=== PATIENT | female | born 1995 ===

== ENCOUNTER 2017-02-28 17:29 | Emergency (ER) | payer SELFPAY ==
[2017-02-28 19:05] LABS: Basophils % (Auto) 0.8 % (0.0-1.8); Eosinophils % (Auto) 1.6 % (0.0-4.3); Hematocrit 40.5 % (30.3-42.9); Hemoglobin 13.5 gm/dl (10.1-14.3); Mean Corpuscular HGB Conc 33 % (30-34); Mean Corpuscular Hemoglobin 32 pg (28-32); Mean Corpuscular Volume 96 fl (79-97); Platelet Count 216 K/mm3 (140-440); Red Blood Count 4.24 M/mm3 (3.65-5.03); White Blood Count 9.5 K/mm3 (4.5-11.0)
[2017-02-28 19:20] LABS: Anion Gap 16 mmol/L; BUN/Creatinine Ratio 12; Blood Urea Nitrogen 7 mg/dL (7-17); Calcium 9.5 mg/dL (8.4-10.2); Carbon Dioxide 22 mmol/L (22-30); Chloride 98.4 mmol/L (98-107); Glucose 100 mg/dL (65-100); Potassium 4.7 mmol/L (3.6-5.0); Sodium 132 mmol/L (137-145)
[2017-02-28 20:17] LABS: Bilirubin,Urine NEG (Negative); Blood,Urine NEG (Negative); Ketones,Urine NEG (Negative); Leukocyte Esterase,Urine SM (Negative); Mucus,Urine FEW /HPF; Nitrite,Urine NEG (Negative); Protein,Urine <15 mg/dL mg/dL (Negative); Urobilinogen,Urine < 2.0 mg/dL (<2.0)
[2017-02-28 22:50] VITALS: BP 123/46
--- NOTE | 2017-02-28 23:01 | Ultrasound Report ---
FINAL REPORT PROCEDURE: US OB TRANSVAGINAL TECHNIQUE: Real-time transabdominal and transvaginal sonography of the uterus, placenta, amniotic fluid, adnexa, and fetus was performed with image documentation. Measurements were obtained to determine age/size. M-mode Doppler was used to document heartbeat. CPT 33253 and 37940 HISTORY: and pain COMPARISON: No prior studies are available for comparison. FINDINGS: ADDITIONAL GESTATION: None. Single live intrauterine is seen with crown-rump length of 4.1 cm. This corresponds to 11 weeks 0 days gestational age. Estimated date of delivery is September 19, 2017. heart rate is 167 beats per minute. Yolk sac is seen. No free pelvic fluid is seen. Right ovary measures 3.3 x 2.8 x 3.2 cm. Left ovary measures 2.4 x 1.8 x 1.7 cm. Normal Doppler flow seen in the ovaries. IMPRESSION: 1. Single live intrauterine gestation at approximately 11 weeks 0 days 2. EDC by US September 19, 2017 3. Complete anatomic survey at 18-20 weeks suggested.
--- NOTE | 2017-02-28 23:02 | Ultrasound Report ---
FINAL REPORT PROCEDURE: US OB \T\lt; = 14 WEEKS FETUS TECHNIQUE: Real-time transabdominal and transvaginal sonography of the uterus, placenta, amniotic fluid, adnexa, and fetus was performed with image documentation. Measurements were obtained to determine age/size. M-mode Doppler was used to document heartbeat. CPT 81743 and 13685 HISTORY: and pain COMPARISON: No prior studies are available for comparison. FINDINGS: ADDITIONAL GESTATION: None. Single live intrauterine is seen with crown-rump length of 4.1 cm. This corresponds to 11 weeks 0 days gestational age. Estimated date of delivery is September 19, 2017. heart rate is 167 beats per minute. Yolk sac is seen. No free pelvic fluid is seen. Right ovary measures 3.3 x 2.8 x 3.2 cm. Left ovary measures 2.4 x 1.8 x 1.7 cm. Normal Doppler flow seen in the ovaries. IMPRESSION: 1. Single live intrauterine gestation at approximately 11 weeks 0 days 2. EDC by US September 19, 2017 3. Complete anatomic survey at 18-20 weeks suggested.
--- NOTE | 2017-02-28 23:16 | Emergency Department Report ---
HPI - General Chief Complaint: Abdominal Pain Time Seen by Provider: 02/28/17 21:43 - HPI HPI: 21-year-old female presents today complaining of nausea and abdominal cramping tends one month. Denies any abdominal pain. Patient's last menstrual period was 12/23/2016. Denies any vaginal bleeding or discharge. Denies using home test. Patient's has history of one other with a portion, one year ago. Denies chest pain, shortness of breath, abdominal pain, fever, chills, urinary symptoms, flank or back pain. ED Past Medical Hx - Past Medical History Previous Medical History?: Yes Hx Headaches / Migraines: Yes - Surgical History Past Surgical History?: Yes Additional Surgical History: - Social History Smoking Status: Current Some Day Smoker Substance Use Type: Marijuana - Medications Home Medications: Home Medications Medication Instructions Recorded Confirmed Last Taken Type Doxylamine Succinate/Vit B6 1 each PO QHS #30 tablet. 02/28/17 Unknown Rx [Unique Zambrano 10-10 mg Tablet] ED Review of Systems ROS: Stated complaint: ABDOMINAL PAIN, NAUSEA Other details as noted in HPI Constitutional: denies: chills, fever, malaise Eyes: denies: eye pain ENT: denies: ear pain, throat pain, congestion Respiratory: denies: cough, shortness of breath, wheezing Cardiovascular: denies: chest pain, palpitations Endocrine: no symptoms reported Gastrointestinal: nausea, vomiting, other (abdominal cramping). denies: abdominal pain, diarrhea Genitourinary: denies: urgency, dysuria, frequency, hematuria, discharge Musculoskeletal: denies: back pain Skin: denies: rash, lesions Neurological: denies: headache, weakness, numbness, paresthesias Physical Exam - Physical Exam Vital Signs: Vital Signs 02/28/17 02/28/17 18:24 22:47 Temperature 98.1 F 98.6 F Pulse Rate 80 88 Respiratory 18 14 Rate Blood Pressure 99/66 Blood Pressure 123/46 [Right] O2 Sat by Pulse 99 Oximetry Physical Exam: GENERAL: The patient is well-developed and well-nourished. Patient is in NAD. HEAD: Normocephalic. Atraumatic. EYES: Extraocular motions are intact, PERRL. EARS: External auditory canals and tympanic membranes clear; hearing grossly intact. NOSE: Normal nasal mucosa with no nasal discharge. THROAT: No erythema, swelling or exudates. Teeth and gingiva in good general condition. NECK: Supple, nontender, without lymphadenopathy. No meningitic signs are noted. CHEST/LUNGS: Clear to auscultation throughout. HEART/CARDIOVASCULAR: Regular rate and rhythm. No murmurs, rubs or gallops. ABDOMEN: Abdomen is soft, nontender. Bowel sounds normoactive. No guarding or rebound tenderness. No CVA tenderness to palpation. EXTREMITIES: No cyanosis, clubbing or edema. Peripheral pulses intact. Capillary refill less than 2 seconds. NEURO: Alert and oriented x 3. Normal gait. ED Course Vital Signs 02/28/17 02/28/17 18:24 22:47 Temperature 98.1 F 98.6 F Pulse Rate 80 88 Respiratory 18 14 Rate Blood Pressure 99/66 Blood Pressure 123/46 [Right] O2 Sat by Pulse 99 Oximetry ED Medical Decision Making - Lab Data Result diagrams: 02/28/17 17:05 02/28/17 18:45 Vital Signs 02/28/17 02/28/17 18:24 22:47 Temperature 98.1 F 98.6 F Pulse Rate 80 88 Respiratory 18 14 Rate Blood Pressure 99/66 Blood Pressure 123/46 [Right] O2 Sat by Pulse 99 Oximetry Lab Results 02/28/17 02/28/17 02/28/17 Range/Units 17:05 18:45 18:45 WBC 9.5 (4.5-11.0) K/mm3 RBC 4.24 (3.65-5.03) M/mm3 Hgb 13.5 (10.1-14.3) gm/dl Hct 40.5 (30.3-42.9) % MCV 96 (79-97) fl MCH 32 (28-32) pg MCHC 33 (30-34) % RDW 13.0 L (13.2-15.2) % Plt Count 216 (140-440) K/mm3 Lymph % (Auto) 14.2 (13.4-35.0) % [place] % (Auto) 5.9 (0.0-7.3) % Eos % (Auto) 1.6 (0.0-4.3) % Baso % (Auto) 0.8 (0.0-1.8) % Lymph # 1.4 (1.2-5.4) K/mm3 [place] # 0.6 (0.0-0.8) K/mm3 Eos # 0.1 (0.0-0.4) K/mm3 Baso # 0.1 (0.0-0.1) K/mm3 Seg Neutrophils % 77.5 H (40.0-70.0) % Seg Neutrophils # 7.4 (1.8-7.7) K/mm3 Sodium 132 L (137-145) mmol/L Potassium 4.7 (3.6-5.0) mmol/L Chloride 98.4 (98-107) mmol/L Carbon Dioxide 22 (22-30) mmol/L Anion Gap 16 mmol/L BUN 7 (7-17) mg/dL Creatinine 0.6 L (0.7-1.2) mg/dL Estimated GFR > 60 ml/min BUN/Creatinine Ratio 12 % Glucose 100 (65-100) mg/dL Calcium 9.5 (8.4-10.2) mg/dL HCG, Quant 29604 H (0-4) mIU/mL Urine Color (Yellow) Urine Turbidity (Clear) Urine pH (5.0-7.0) Ur Specific [place] (1.003-1.030) Urine Protein (Negative) mg/dL Urine Glucose (UA) (Negative) mg/dL Urine Ketones (Negative) mg/dL Urine Blood (Negative) Urine Nitrite (Negative) Urine Bilirubin (Negative) Urine Urobilinogen (<2.0) mg/dL Ur Leukocyte Esterase (Negative) Urine WBC (Auto) (0.0-6.0) /HPF Urine RBC (Auto) (0.0-6.0) /HPF U Epithel Cells (Auto) (0-13.0) /HPF Urine Mucus /HPF 02/28/17 Range/Units 19:30 WBC (4.5-11.0) K/mm3 RBC (3.65-5.03) M/mm3 Hgb (10.1-14.3) gm/dl Hct (30.3-42.9) % MCV (79-97) fl MCH (28-32) pg MCHC (30-34) % RDW (13.2-15.2) % Plt Count (140-440) K/mm3 Lymph % (Auto) (13.4-35.0) % [place] % (Auto) (0.0-7.3) % Eos % (Auto) (0.0-4.3) % Baso % (Auto) (0.0-1.8) % Lymph # (1.2-5.4) K/mm3 [place] # (0.0-0.8) K/mm3 Eos # (0.0-0.4) K/mm3 Baso # (0.0-0.1) K/mm3 Seg Neutrophils % (40.0-70.0) % Seg Neutrophils # (1.8-7.7) K/mm3 Sodium (137-145) mmol/L Potassium (3.6-5.0) mmol/L Chloride (98-107) mmol/L Carbon Dioxide (22-30) mmol/L Anion Gap mmol/L BUN (7-17) mg/dL Creatinine (0.7-1.2) mg/dL Estimated GFR ml/min BUN/Creatinine Ratio % Glucose (65-100) mg/dL Calcium (8.4-10.2) mg/dL HCG, Quant (0-4) mIU/mL Urine Color Yellow (Yellow) Urine Turbidity Clear (Clear) Urine pH 6.0 (5.0-7.0) Ur Specific [place] 1.015 (1.003-1.030) Urine Protein <15 mg/dl (Negative) mg/dL Urine Glucose (UA) Neg (Negative) mg/dL Urine Ketones Neg (Negative) mg/dL Urine Blood Neg (Negative) Urine Nitrite Neg (Negative) Urine Bilirubin Neg (Negative) Urine Urobilinogen < 2.0 (<2.0) mg/dL Ur Leukocyte Esterase Sm (Negative) Urine WBC (Auto) 2.0 (0.0-6.0) /HPF Urine RBC (Auto) 2.0 (0.0-6.0) /HPF U Epithel Cells (Auto) 11.0 (0-13.0) /HPF Urine Mucus Few /HPF - Radiology Data Radiology results: report reviewed PROCEDURE: US OB TRANSVAGINAL TECHNIQUE: Real-time transabdominal and transvaginal sonography of the uterus, placenta, amniotic fluid, adnexa, and fetus was performed with image documentation. Measurements were obtained to determine age/size. M-mode Doppler was used to document heartbeat. CPT 10796 and 42570 HISTORY: and pain COMPARISON: No prior studies are available for comparison. FINDINGS: ADDITIONAL GESTATION: None. Single live intrauterine is seen with crown-rump length of 4.1 cm. This corresponds to 11 weeks 0 days gestational age. Estimated date of delivery is September 19, 2017. heart rate is 167 beats per minute. Yolk sac is seen. No free pelvic fluid is seen. Right ovary measures 3.3 x 2.8 x 3.2 cm. Left ovary measures 2.4 x 1.8 x 1.7 cm. Normal Doppler flow seen in the ovaries. IMPRESSION: 1. Single live intrauterine gestation at approximately 11 weeks 0 days 2. EDC by US September 19, 2017 3. Complete anatomic survey at 18-20 weeks suggested. - Medical Decision Making 21-year-old female presents today complaining of nausea and abdominal cramping times one month. Her last menstrual period was 12/23/2016. Her lab results reveal elevated beta hCG. Her ultrasound results reveal a single live intrauterine gestation at approximately 11 weeks. No free pelvic fluid is seen and normal Doppler flow seen in both ovaries. Patient is in no acute distress at this time. She will be discharged home and is encouraged to follow up with a primary care provider. She will be referred to [facility]. She will be sent home on [place] and is encouraged to return to the emergency room for any worsening symptoms. Critical care attestation.: If time is entered above; I have spent that time in minutes in the direct care of this critically ill patient, excluding procedure time. ED Disposition Clinical Impression: Nausea Qualifiers: Weeks of gestation: 11 weeks Qualified Code(s): Z3A.11 - 11 weeks gestation of Disposition: DC-01 TO HOME OR SELFCARE Is pt being admited?: No Does the pt Need Aspirin: No Condition: Stable Instructions: (ED), Morning Sickness (ED) Additional Instructions: Follow-up with primary care provider and [facility]. Return to the emergency department if symptoms worsen. Prescriptions: Doxylamine Succinate/Vit B6 [Unique Zambrano 10-10 mg Tablet] 1 each PO QHS #30 tablet. Referrals: JOLIE DALE MD [Primary Care Provider] - 3-5 Days LINN WALDRON MD [Staff Physician] - 3-5 Days Forms: Work/School Release Form(ED) Time of Disposition: 23:18
== END 2017-02-28 23:30 | disposition home or self-care (01) ==
LOC: ED 17:29
DX: O26.891 Other specified pregnancy related conditions, first trimester (principal); R10.9 Unspecified abdominal pain; R11.0 Nausea; G43.909 Migraine, unspecified, not intractable, without status migrainosus; F17.210 Nicotine dependence, cigarettes, uncomplicated; F12.10 Cannabis abuse, uncomplicated; Z3A.11 11 weeks gestation of pregnancy
CPT/HCPCS: 36415; 76801; 76817; 80048; 81001; 84702; 85025; 99284